=== PATIENT | male | born 1980 | race Two or more races ===

== ENCOUNTER 2021-07-15 11:59 | Emergency (ER) | payer MEDICAID ==
[~2021-07-15] VITALS: Ht 167.6 cm; Wt 79.4 kg
[2021-07-15] MEDS ORDERED: TDAP DIPH,PERTUSS,TET VAC/PF 0.5 ML DISP.SYRIN IM ONE ×2 (12:15→12:34)
--- NOTE | 2021-07-15 12:37 | NUR ---
[employer] tech in room with patient.
--- NOTE | 2021-07-15 12:45 | NUR ---
speaking with via telephone.
[2021-07-15 13:03] VITALS: BP 122/76
--- NOTE | 2021-07-15 13:04 | NUR ---
Patient discharged to home in stable condition. Written and verbal after care instructions given. Patient verbalizes understanding of instructions. Stressed follow up or return to ER for worsening s/s. Patient ambulates with steady gait, V/S stable, and left with all personal belongings.
== END 2021-07-15 13:04 | disposition home or self-care (01) ==
LOC: ER 11:59
DX: S80.11XA Contusion of right lower leg, initial encounter (principal); W20.8XXA Other cause of strike by thrown, projected or falling object, initial encounter; Y92.89 Other specified places as the place of occurrence of the external cause
CPT/HCPCS: 73590; 90715; A4663

== ENCOUNTER 2021-07-22 21:21 | Emergency (ER) | payer MEDICAID ==
[~2021-07-22] VITALS: Ht 167.6 cm; Wt 90.7 kg
--- NOTE | 2021-07-22 22:15 | NUR ---
Pt here for bug bite on right lower leg that became infected. Pt was here last week for same issue and stated it has gotten worse since his last visit. Area around the bite is swollen.
[2021-07-22] MEDS ORDERED: NEOM28.37 TP (22:24)
[2021-07-22] MEDS ORDERED: SULF1TAB48 PO (22:24)
[2021-07-22] MEDS ORDERED: NEOMY/BACITRA/POLYMYXIN B OINT UD PACKET TP ONE ×2 (22:30→22:34)
[2021-07-22] MEDS ORDERED: SULFAMETH/TRIMETH 800/160 MG TABLET PO ONE (22:30)
--- NOTE | 2021-07-22 22:34 | NUR ---
Patient discharged to home in stable condition. Written and verbal after care instructions given. Patient verbalizes understanding of instructions. Stressed follow up or return to ER for worsening s/s. NAD. All belongings taken. Pt walks with steady gait.
[2021-07-22] MEDS ORDERED: SULFAMETH/TRIMETH 800/160 MG TABLET ONE (22:35)
[2021-07-22 22:38] VITALS: BP 149/89
== END 2021-07-22 22:40 | disposition home or self-care (01) ==
LOC: ER 21:22
DX: L08.9 Local infection of the skin and subcutaneous tissue, unspecified (principal); S80.811D Abrasion, right lower leg, subsequent encounter; W20.8XXD Other cause of strike by thrown, projected or falling object, subsequent encounter; R03.0 Elevated blood-pressure reading, without diagnosis of hypertension
CPT/HCPCS: A4663

== ENCOUNTER 2023-07-26 07:44 | Emergency (ER) | payer MEDICAID ==
[~2023-07-26] VITALS: Ht 162.6 cm; Wt 83.9 kg
[~2023-07-26 07:44] MED LIST: NEOM28.37 TP; SULF1TAB48 PO
[2023-07-26 07:55] VITALS: O2SAT 96
[2023-07-26] MEDS ORDERED: TETRACAINE HCL 0.5% OPHT DROP 2 ML BOTTLE ONE (08:21)
[2023-07-26] MEDS ORDERED: FLUORESCEIN SODIUM 1 MG STRIP ONE (08:21)
[2023-07-26] MEDS ORDERED: FLUORESCEIN SODIUM 1 MG STRIP OP ONE (08:30)
[2023-07-26] MEDS ORDERED: TETRACAINE HCL 0.5% OPHT DROP 2 ML BOTTLE OP ONE (08:30)
[2023-07-26] MEDS ORDERED: GENT5DRO4 LEFTEYE (08:37)
== END 2023-07-26 08:55 | disposition home or self-care (01) ==
LOC: ER 07:44
DX: H10.212 Acute toxic conjunctivitis, left eye (principal); Z79.899 Other long term (current) drug therapy
CPT/HCPCS: A4663

== ENCOUNTER 2024-03-29 19:58 | Emergency (ER) | payer SELFPAY ==
[~2024-03-29] VITALS: Ht 170.2 cm; Wt 93.0 kg
[~2024-03-29 19:58] MED LIST changes: +GENT5DRO4 LEFTEYE
[2024-03-29 20:46] LABS: BASOPHILS # (AUTO) 0.1 K/UL (0.0-0.2); BASOPHILS % (AUTO) 1.1 % (0.0-2.0); EOSINOPHILS # (AUTO) 0.1 K/uL (0.0-0.7); HEMATOCRIT 42.8 % (36.7-47.1); HEMOGLOBIN 14.4 g/dL (12.5-16.3); LYMPHOCYTES # (AUTO) 2.3 K/uL (0.8-4.8); LYMPHOCYTES % (AUTO) 33.1 % (20.5-51.5); MEAN CORPUSCULAR HEMOGLOBIN 31.3 uug (23.8-33.4); MEAN CORPUSCULAR HGB CONC 34 g/dL (32.5-36.3); MEAN CORPUSCULAR VOLUME 92.9 fL (73.0-96.2); MONOCYTES # (AUTO) 0.3 K/uL (0.1-1.30); MONOCYTES % (AUTO) 4.7 % (0.0-11.0); NEUTROPHILS # (AUTO) 4.2 K/uL (1.8-8.9); NEUTROPHILS % (AUTO) 60.1 % (38.5-71.5); PLATELET COUNT (AUTO) 228 K/uL (152-348); RED CELL DISTRIBUTION WIDTH 13.1 % (12.1-16.2)
[2024-03-29 20:49] LABS: *BILIRUBIN,URIN NEGATIVE (NEGATIVE); *BLOOD, URINE NEGATIVE (NEGATIVE); *CLARITY,URINE CLEAR (CLEAR); *COLOR,URINE YELLOW (YELLOW); *KETONES,URINE TRACE (NEGATIVE); *PROTEIN,URINE NEGATIVE (NEGATIVE); *UROBILINOGEN,URINE 0.2 E.U./dl (NORMAL); LEUKOCYTE ESTERASE ,URINE NEGATIVE (NEGATIVE); NITRITE, URINE NEGATIVE (NEGATIVE); PH,URINE 5.5 (5.0-8.0); UGLUCOSE NEGATIVE (NEGATIVE)
[2024-03-29 21:07] LABS: DIFFERENTIAL COMMENT 1
[2024-03-29 21:17] LABS: BILIRUBIN,TOTAL 0.3 mg/dL (0.2-1.0); CALCIUM 8.6 mg/dL (8.5-10.1); CREATININE 0.9 mg/dL (0.6-1.3); POTASSIUM 3.8 mmol/L (3.5-5.1); TOTAL PROTEIN, SERUM 8.4 g/dL (6.4-8.2)
[2024-03-29 21:31] LABS: BACTERIA,URINE FEW /HPF (NONE SEEN); RBC,URINE 0-3 /HPF (0-3); WBC,URINE NONE SEEN /HPF (0-3)
[2024-03-29 21:32] LABS: COARSE GRANULAR CASTS,URINE 0-3 /LPF; SQUAMOUS EPITHELIAL CELL,UR MODERATE /HPF (NONE SEEN)
[2024-03-29] MEDS ORDERED: KETOROLAC TROMETHAMINE 30 MG INJ ONE (22:28)
[2024-03-29] MEDS: KETOROLAC TROMETHAMINE 30 MG INJ IM ONE (22:33)
[2024-03-29 23:01] VITALS: BP 150/79; O2SAT 97
[2024-03-30 01:26] LABS: *AMPHETAMINE, URINE NEGATIVE (NEGATIVE); *BARBITURATE, URINE NEGATIVE (NEGATIVE)
[2024-03-30 01:27] LABS: *BENZODIAZEPINE, URINE NEGATIVE (NEGATIVE); *CANNABINOID, URINE NEGATIVE (NEGATIVE); *COCCAINE, URINE NEGATIVE (NEGATIVE); *OPIATE, URINE NEGATIVE (NEGATIVE); *PHENCYCLIDINE SCREEN,URINE NEGATIVE (NEGATIVE); FENTANYL, URINE NEGATIVE (NEGATIVE)
== END 2024-03-29 23:01 | disposition home or self-care (01) ==
LOC: ER 20:06
DX: S42.451A Displaced fracture of lateral condyle of right humerus, initial encounter for closed fracture (principal); Z79.899 Other long term (current) drug therapy; Y04.0XXA Assault by unarmed brawl or fight, initial encounter; Y93.89 Activity, other specified; Y92.89 Other specified places as the place of occurrence of the external cause; Y99.8 Other external cause status
CPT/HCPCS: 80053; 81001; 85025; 36415; 73060; 73090; 73130; 99284; 96372; 80320; 80307; J1885; A4606; A4663; G0480